=== PATIENT | female | born 1990 | race Caucasian/White ===

== ENCOUNTER 2023-04-30 12:27 | Emergency (ER) | payer OTHER ==
[~2023-04-30] VITALS: Ht 165.1 cm; Wt 121.0 kg
[2023-04-30 12:29] VITALS: TEMP 97.6
[2023-04-30] MEDS ORDERED: ACET325C5 PO (12:37)
[2023-04-30] MEDS ORDERED: ACET500P3 PO (12:37)
[2023-04-30] MEDS ORDERED: ZOLO100T PO (12:37)
[2023-04-30] MEDS ORDERED: CETI10CA13 PO (12:37)
[2023-04-30] MEDS ORDERED: ALBU8.5H INH (12:37)
[2023-04-30] MEDS ORDERED: TYLE650T38 PO (12:37)
[2023-04-30 13:19] LABS: BASO # 0.1 10^3/uL (0.0-0.2); BASO % 0.8 % (0.0-1.0); EOS # 0.1 10^3/uL (0.0-0.5); EOS % 1.5 % (0.0-3.0); HEMOGLOBIN 15.5 g/dl (12.0-15.5); LYMPH # 2.8 10^3/uL (1.5-5.0); MEAN CORPUSCULAR HEMOGLOBIN 30.6 pg (27.0-33.0); MEAN CORPUSCULAR HGB CONC 33.7 g/dl (32.0-36.5); MEAN CORPUSCULAR VOLUME 90.9 fl (80.0-96.0); MONO # 0.7 10^3/uL (0.0-0.8); MONO % 8.2 % (2.0-8.0); NEUTROPHILS # 4.8 10^3/uL (1.5-8.5); NEUTROPHILS % 56.1 % (36.0-66.0); PLATELET COUNT, AUTOMATED 314 10^3/uL (150-450); RED BLOOD COUNT 5.06 10^6/uL (4.00-5.40); WHITE BLOOD COUNT 8.5 10^3/uL (4.0-10.0)
[2023-04-30] MEDS ORDERED: NS 1,000 ML IV ONE (13:50)
[2023-04-30] MEDS ORDERED: ONDANSETRON 4MG 2ML VIAL IV ONE (13:50)
[2023-04-30] MEDS ORDERED: MORPHINE 4 MG/ML 1ML VIAL IV ONE ×2 (13:50→18:50)
[2023-04-30 13:59] LABS: ALKALINE PHOSPHATASE 83 U/L (46-116); ALT/SGPT 52 U/L (7.0-40); AST/SGOT 36 U/L (<34); BILIRUBIN,DIRECT < 0.1 MG/DL (<0.4); BILIRUBIN,TOTAL 0.4 MG/DL (0.3-1.2); LIPASE 25 U/L (12-53); TOTAL PROTEIN 6.9 G/DL (5.7-8.2)
[2023-04-30] MEDS ORDERED: MORPHINE 2 MG/ML 1ML VIAL IV ONE (15:10)
[2023-04-30] MEDS ORDERED: NS 500 ML IV ONE (16:20)
[2023-04-30] MEDS ORDERED: ISOVUE-370 76% 100ML VIAL As Ordered ONE (16:38)
[2023-04-30] MEDS ORDERED: DICYCLOMINE 10 MG CAP PO ONE (18:50)
[2023-04-30] MEDS ORDERED: PROMETHAZINE 25 MG TAB PO ONE (18:50)
[2023-04-30] MEDS ORDERED: DICY-61 PO (18:58)
[2023-04-30] MEDS ORDERED: PROM25TA12 PO (18:58)
[2023-04-30 19:13] VITALS: BP 119/60; O2SAT 98
== END 2023-04-30 19:25 | disposition home or self-care (01) ==
LOC: M ED 12:27
DX: R10.12 Left upper quadrant pain (principal); K76.0 Fatty (change of) liver, not elsewhere classified; R11.2 Nausea with vomiting, unspecified; Z88.0 Allergy status to penicillin; Z79.51 Long term (current) use of inhaled steroids; Z79.899 Other long term (current) drug therapy
CPT/HCPCS: 74177; 76705; 80047; 80076; 81001; 83690; 84702; 85025; 96374; 96375; 96376; 99284; J2405; Q9967

== ENCOUNTER 2023-05-07 15:38 | Emergency (ER) | payer OTHER ==
[~2023-05-07] VITALS: Ht 165.1 cm; Wt 121.0 kg
[~2023-05-07 15:38] MED LIST: ACET325C5 PO; ACET500P3 PO; ALBU8.5H INH; CETI10CA13 PO; DICY-61 PO; PROM25TA12 PO; TYLE650T38 PO; ZOLO100T PO
[2023-05-07 16:24] LABS: BASO # 0.1 10^3/uL (0.0-0.2); BASO % 0.6 % (0.0-1.0); EOS # 0.2 10^3/uL (0.0-0.5); EOS % 1.6 % (0.0-3.0); HEMATOCRIT 50.7 % (36.0-47.0); HEMOGLOBIN 16.9 g/dl (12.0-15.5); LYMPH # 3.5 10^3/uL (1.5-5.0); LYMPH % 30.9 % (24.0-44.0); MEAN CORPUSCULAR HEMOGLOBIN 30.7 pg (27.0-33.0); MEAN CORPUSCULAR HGB CONC 33.3 g/dl (32.0-36.5); MONO # 0.8 10^3/uL (0.0-0.8); MONO % 7.2 % (2.0-8.0); NEUTROPHILS # 6.8 10^3/uL (1.5-8.5); NEUTROPHILS % 59.5 % (36.0-66.0); PLATELET COUNT, AUTOMATED 373 10^3/uL (150-450); RED BLOOD COUNT 5.51 10^6/uL (4.00-5.40); WHITE BLOOD COUNT 11.4 10^3/uL (4.0-10.0)
[2023-05-07 16:48] LABS: LIPASE 38 U/L (12-53)
[2023-05-07 16:50] LABS: ALBUMIN 4.1 G/DL (3.2-5.2); ALKALINE PHOSPHATASE 97 U/L (46-116); ALT/SGPT 59 U/L (7.0-40); AST/SGOT 33 U/L (<34); BILIRUBIN,DIRECT < 0.1 MG/DL (<0.4); BILIRUBIN,TOTAL 0.3 MG/DL (0.3-1.2); TOTAL PROTEIN 7.3 G/DL (5.7-8.2)
[2023-05-07] MEDS: ACETAMINOPHEN 1000MG 100ML IV BAG IV ONE ×2 (18:20→18:36)
[2023-05-07] MEDS ORDERED: ONDANSETRON 4MG 2ML VIAL IV ONE (18:25)
[2023-05-07] MEDS ORDERED: DICYCLOMINE 10 MG CAP PO ONE (18:55)
[2023-05-07] MEDS ORDERED: DICY20TA20 PO (19:18)
[2023-05-07 19:22] VITALS: BP 121/81; TEMP 97.6; O2SAT 98
== END 2023-05-07 19:27 | disposition home or self-care (01) ==
LOC: M ED 16:27
DX: R10.11 Right upper quadrant pain (principal); F31.9 Bipolar disorder, unspecified; Z88.0 Allergy status to penicillin; Z79.899 Other long term (current) drug therapy; Z79.51 Long term (current) use of inhaled steroids
CPT/HCPCS: 76705; 80047; 80076; 81001; 83690; 84702; 85025; 96374; 96375; 99284; J2405

== ENCOUNTER → 2023-08-10 | Outpatient (CLI) | payer OTHER ==
[~2023-08-10] MED LIST changes: +DICY20TA20 PO
== END ==
LOC: M PLAIMG 09:14
PROVIDERS: ATTEND Nurse Practitioner Family
DX: R05.9 Cough, unspecified (principal); J45.909 Unspecified asthma, uncomplicated; R06.02 Shortness of breath

== ENCOUNTER 2023-09-10 11:48 | Emergency (ER) | payer OTHER ==
[~2023-09-10] VITALS: Ht 165.1 cm; Wt 121.4 kg
[2023-09-10] MEDS ORDERED: IBUP-1022 PO (13:59)
[2023-09-10] MEDS ORDERED: IBUPROFEN 600MG TAB PO ONE (14:00)
[2023-09-10 14:05] VITALS: BP 128/75; TEMP 97.8; O2SAT 98
[2023-09-10] MEDS ORDERED: ACET325C5 PO (14:06)
[2023-09-10] MEDS ORDERED: ACETAMINOPHEN TAB 650MG DOSE (2X325MG) PO ONE (14:10)
== END 2023-09-10 14:13 | disposition home or self-care (01) ==
LOC: M ED 11:48
DX: S60.222A Contusion of left hand, initial encounter (principal); S60.212A Contusion of left wrist, initial encounter; W22.8XXA Striking against or struck by other objects, initial encounter; Y92.9 Unspecified place or not applicable; Y93.9 Activity, unspecified; Y99.9 Unspecified external cause status; Z88.0 Allergy status to penicillin; Z79.1 Long term (current) use of non-steroidal anti-inflammatories (NSAID); Z79.51 Long term (current) use of inhaled steroids; Z79.899 Other long term (current) drug therapy

== ENCOUNTER 2023-09-15 20:49 | Emergency (ER) | payer OTHER ==
[~2023-09-15] VITALS: Ht 165.1 cm; Wt 122.0 kg
[~2023-09-15 20:49] MED LIST changes: +IBUP-1022 PO
[2023-09-15] MEDS ORDERED: ACET1TAB55 (20:58)
[2023-09-15] MEDS ORDERED: MULTTAB20 PO (20:58)
[2023-09-15] MEDS ORDERED: LETR2.5T2 (20:58)
[2023-09-15] MEDS ORDERED: METF-838 (20:58)
[2023-09-15] MEDS ORDERED: FLUT12AE6 (20:58)
[2023-09-16] MEDS ORDERED: ACETAMINOPHEN TAB 650MG DOSE (2X325MG) PO ONE (00:30)
[2023-09-16] MEDS ORDERED: NIRMATRELVIR/RITONAVIR CO-PACK (EMERGENCY USE AUTH) PO SCH ×2 (01:15→09:00)
[2023-09-16 01:36] VITALS: BP 130/65; TEMP 100.7; O2SAT 100
[2023-09-16] MEDS ORDERED: NIRMATRELVIR/RITONAVIR (RENAL) CO-PACK (EUA) PO SCH (09:00)
== END 2023-09-16 01:41 | disposition home or self-care (01) ==
LOC: M ED 20:49
DX: U07.1 COVID-19 (principal); Z88.0 Allergy status to penicillin; Z79.52 Long term (current) use of systemic steroids; Z79.810 Long term (current) use of selective estrogen receptor modulators (SERMs); Z79.899 Other long term (current) drug therapy

== ENCOUNTER 2023-12-03 19:52 | Emergency (ER) | payer OTHER ==
[~2023-12-03] VITALS: Ht 165.1 cm; Wt 123.3 kg
[~2023-12-03 19:52] MED LIST changes: +ACET1TAB55; +FLUT12AE6; +LETR2.5T2; +METF-838; +MULTTAB20 PO
[2023-12-03 19:53] VITALS: BP 159/81; TEMP 98; O2SAT 98
== END 2023-12-03 23:19 | disposition left against medical advice (07) ==
LOC: M ED 19:52
DX: Z53.21 Procedure and treatment not carried out due to patient leaving prior to being seen by health care provider (principal)

== ENCOUNTER → 2023-12-17 | Outpatient (CLI) | payer OTHER | LOC: M PLARAD 09:03 | PROVIDERS: ATTEND Orthopaedic Surgery Hand Surgery | DX: M25.532 Pain in left wrist (principal) ==

== ENCOUNTER → 2024-03-30 | Outpatient (CLI) | payer OTHER | LOC: M PLAIMG 03-13 13:32 | PROVIDERS: ATTEND Nurse Practitioner Family | DX: R91.8 Other nonspecific abnormal finding of lung field (principal); Z87.891 Personal history of nicotine dependence ==

== ENCOUNTER 2024-06-24 18:01 | Emergency (ER) | payer OTHER ==
[~2024-06-24] VITALS: Ht 165.1 cm; Wt 117.3 kg
[2024-06-24 18:03] VITALS: BP 142/78; TEMP 97.3; O2SAT 98
[2024-06-24] MEDS ORDERED: BUPR-597 (18:12)
[2024-06-24] MEDS ORDERED: LORA-930 (18:12)
[2024-06-24] MEDS ORDERED: OXYC1TAB23 (18:12)
== END 2024-06-24 22:07 | disposition left against medical advice (07) ==
LOC: M ED 18:01
DX: Z53.21 Procedure and treatment not carried out due to patient leaving prior to being seen by health care provider (principal)

== ENCOUNTER → 2025-01-26 | Outpatient (CLI) | payer OTHER ==
[~2025-01-26] MED LIST changes: +BUPR-766; +LORA-930; +OXYC1TAB23
== END ==
LOC: M RAD 17:05
PROVIDERS: ATTEND Internal Medicine Pulmonary Disease
DX: R91.8 Other nonspecific abnormal finding of lung field (principal)

== ENCOUNTER → 2025-02-12 | Outpatient (REF) | payer OTHER | LOC: M LAB REF 16:52 | PROVIDERS: ATTEND Surgery | DX: N61.1 Abscess of the breast and nipple (principal) ==